=== PATIENT | female | born 1965 | race Two or more races ===

== ENCOUNTER 2020-07-26 11:01 | Inpatient (IN) | payer MEDICARE, OTHER ==
[~2020-07-26] VITALS: Ht 152.4 cm; Wt 105.0 kg
--- NOTE | 2020-07-26 11:27 | NUR ---
ED Nurse Note: Pt from home and referred by Dr Cabrera for evaluation. Per pt she was refered here for admission and needs covid tesing to be admitted on a health care placement. Pt denies any flu symptoms or any pain. AAOx4, ambulatory with no respiratory distress. No coughing or congestion.
--- NOTE | 2020-07-26 11:46 | NUR ---
ED Nurse Note: Dr Cabrera at the bed side.
[2020-07-26] MEDS ORDERED: Miralax 17gm pkt ORAL PRN (12:00)
--- NOTE | 2020-07-26 12:11 | History and Physical ---
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 Dickerson at [facility] per family report ( daughter Teagan ), the patient has NOT BEEN on any neurological medication due to her wishes and previously was living at home. Her ambulation is limited due to movement abnormalities, speech is preserved and reports being able to eat without problems at this time. Her Hygene is not adequately taken care off and she needs assistance with this activity of daily living. Family wants to look into ferry terminal agent care and possibly SNF for PT - OT and other ancillary support services. Allergies: Coded Allergies: No Known Allergies (Unverified , 07/26/20) COVID-19 Screening Contact w/high risk pt: No Recent Travel to affected area: No Experienced COVID-19 symptoms?: No Medication History No Active Prescriptions or Reported Meds Patient History Healthcare decision maker Resuscitation status Advanced Directive on File Review of Systems Constitutional: Reports: weakness Eye: Reports: no symptoms ENT: Reports: no symptoms Respiratory: Reports: no symptoms Cardiovascular: Reports: no symptoms Gastrointestinal: Reports: no symptoms Genitourinary: Reports: no symptoms Musculoskeletal: Reports: muscle stiffness Skin: Reports: no symptoms Psychiatric: Reports: no symptoms Neurological: Reports: tremors Endocrine: Reports: no symptoms Hematologic/Lymphatic: Reports: no symptoms All Other Systems: negative except mentioned in HPI Physical Exam General Appearance: WD/WN HEENT: normocephalic, atraumatic Neck: non-tender Respiratory/Chest: chest wall non-tender, lungs clear Cardiovascular/Chest: normal peripheral pulses, normal rate Abdomen: non tender, soft Extremities: normal range of motion Neurologic: porter sample case II-XII grossly normal Last 24 Hour Vital Signs Date Time Temp Pulse Resp B/P (MAP) Pulse Ox O2 Delivery O2 Flow Rate FiO2 07/26/20 11:27 86 18 Room Air 07/26/20 11:17 99.1 86 18 133/92 (106) 99 Room Air Laboratory Tests Test 07/26/20 11:45 White Blood Count Pending Red Blood Count Pending Hemoglobin Pending Hematocrit Pending Mean Corpuscular Volume Pending Mean Corpuscular Hemoglobin Pending Mean Corpuscular Hemoglobin Concent Pending Red Cell Distribution Width Pending Platelet Count Pending Mean Platelet Volume Pending Neutrophils (%) (Auto) Pending Lymphocytes (%) (Auto) Pending Monocytes (%) (Auto) Pending Eosinophils (%) (Auto) Pending Basophils (%) (Auto) Pending Sodium Level Pending Potassium Level Pending Chloride Level Pending Carbon Dioxide Level Pending Blood Urea Nitrogen Pending Creatinine Pending Estimat Glomerular Filtration Rate Pending Glucose Level Pending Calcium Level Pending Total Bilirubin Pending Aspartate Amino Transf (AST/SGOT) Pending Alanine Aminotransferase (ALT/SGPT) Pending Alkaline Phosphatase Pending Total Protein Pending Albumin Pending Globulin Pending Height (Feet): 5 Weight (Pounds): 100 Medications Current Medications Medications (Trade) Dose Ordered Sig/Mike Route PRN Reason Start Time Stop Time Status Last Admin Dose Admin Acetaminophen (Tylenol) 650 mg ONCE ONCE ORAL 07/26/20 12:00 07/26/20 12:01 Assessment/Plan Status: stable Assessment/Plan: 55 y/o F admitted to the hospital due to increasing weakness and inability to care for her ADL's due to underlying neurological condition # Pieter's disease diagnosed in 2014 and previously under the care of [facility] Dr. Dickerson Patient declined medication for her condition and she has 3 other siblings ( 1 ) affected by Pieter's disease. Her mother was also positive and is now . Supportive care will be continued PRN muscle relaxant if needed Labs ordered and pending. Check lipids and HbA1c Needs PT OT ST evaluation and CM referral for SNF placement due to need for ADL' s support. # DVT ppx low risk, ambulatory and declines SQ heparin or enoxaparin # GI ppx with Famotidine # FULL CODE Fiona Cabrera MD Jul 26, 2020 12:11
[2020-07-26 12:13] LABS: BASOPHILS % (AUTO) 0.9 % (0.0-2.0); EOSINOPHILS % (AUTO) 1.3 % (0.0-3.0); HEMATOCRIT 41.7 % (37.0-47.0); HEMOGLOBIN 12.8 G/DL (12.0-16.0); LYMPHOCYTES % (AUTO) 23.4 % (20.0-45.0); MEAN CORPUSCULAR VOLUME 77 FL (80-99); NEUTROPHILS % (AUTO) 67.4 % (45.0-75.0); PLATELET COUNT 323 K/UL (150-450); RED BLOOD COUNT 5.43 M/UL (4.20-5.40); WHITE BLOOD COUNT 6.7 K/UL (4.8-10.8)
--- NOTE | 2020-07-26 12:14 | Emergency Room Report ---
History of Present Illness General Chief Complaint: General Complaint Source: Patient Present Illness HPI Disclaimer: Please note that this report is being documented using DRAGON technology. This can lead to erroneous entry secondary to incorrect interpretation by the dictating instrument. HPI: 55-year-old female presents from home secondary to worsening of her baseline chorea. She has a history of Calloway's chorea. There was no report of fever nausea or vomiting. But family is having trouble taking care of her at home. She denies any pain nausea vomiting or fevers. PMH: Calloway's chorea Allergies: Coded Allergies: No Known Allergies (Unverified , 07/26/20) COVID-19 Screening Contact w/high risk pt: No Recent Travel to affected area: No Experienced COVID-19 symptoms?: No COVID-19 Testing performed SHOELACE TIPPING MACHINE OPERATOR: No Patient History Last Menstrual Period: na Reviewed Nursing Documentation: PMH: Agreed; PSxH: Agreed Nursing Documentation-PMH Past Medical History: No History, Except For Hx Neurological Problems: Yes - Calloway's disease Review of Systems All Other Systems: negative except mentioned in HPI Physical Exam Vital Signs Date Time Temp Pulse Resp B/P (MAP) Pulse Ox O2 Delivery O2 Flow Rate FiO2 07/26/20 11:17 99.1 86 18 133/92 (106) 99 Room Air Sp02 EP Interpretation: reviewed, normal General Appearance: well appearing, other - Patient with chorea type movements noted Head: normocephalic, atraumatic Eyes: bilateral eye PERRL, bilateral eye EOMI ENT: hearing grossly normal, moist mucus membranes Neck: full range of motion, supple Respiratory: lungs clear, normal breath sounds, no rhonchi, no respiratory distress, no retraction, no wheezing Cardiovascular #1: normal peripheral pulses, regular rate, rhythm, no murmur Gastrointestinal: non tender, soft, non-distended, no guarding Neurologic: alert, oriented x3, other - Chorea type movements noted Skin: normal color, warm/dry Medical Decision Making Diagnostic Impression: Primary Impression: Huntingtons chorea Additional Impression: UTI (urinary tract infection) ER Course MDM: Differential included but not limited to worsening Pieter's chorea. Generalized weakness, failure to thrive, UTI to name a few Clinical course-patient presented for worsening debilitation secondary to her Calloway's chorea. On my exam she did have chorea type movements. Per primary care physician patient is having difficulty completing her ADLs at home. And is difficult to care for. At this time will place in the hospital for observation, possibly physical therapy and Occupational Therapy. Admitted to the medical floor. IV antibiotics given for possible UTI. Labs - Laboratory Test Laboratory Tests Test 07/26/20 11:45 07/26/20 12:00 White Blood Count 6.7 K/UL (4.8-10.8) Red Blood Count 5.43 M/UL (4.20-5.40) H Hemoglobin 12.8 G/DL (12.0-16.0) Hematocrit 41.7 % (37.0-47.0) Mean Corpuscular Volume 77 FL (80-99) L Mean Corpuscular Hemoglobin 23.5 PG (27.0-31.0) L Mean Corpuscular Hemoglobin Concent 30.6 G/DL (32.0-36.0) L Red Cell Distribution Width 16.0 % (11.6-14.8) H Platelet Count 323 K/UL (150-450) Mean Platelet Volume 9.0 FL (6.5-10.1) Neutrophils (%) (Auto) 67.4 % (45.0-75.0) Lymphocytes (%) (Auto) 23.4 % (20.0-45.0) Monocytes (%) (Auto) 7.0 % (1.0-10.0) Eosinophils (%) (Auto) 1.3 % (0.0-3.0) Basophils (%) (Auto) 0.9 % (0.0-2.0) Sodium Level 142 MMOL/L (136-145) Potassium Level 4.3 MMOL/L (3.5-5.1) Chloride Level 107 MMOL/L (98-107) Carbon Dioxide Level 27 MMOL/L (21-32) Anion Gap 8 mmol/L (5-15) Blood Urea Nitrogen 12 mg/dL (7-18) Creatinine 0.6 MG/DL (0.55-1.30) Estimated Glomerular Filtration Rate > 60 mL/min (>60) Glucose Level 117 MG/DL (74-106) H Calcium Level 9.5 MG/DL (8.5-10.1) Total Bilirubin 0.3 MG/DL (0.2-1.0) Aspartate Amino Transferase (AST) 19 U/L (15-37) Alanine Aminotransferase (ALT) 16 U/L (12-78) Alkaline Phosphatase 67 U/L (46-116) Total Protein 8.5 G/DL (6.4-8.2) H Albumin 4.0 G/DL (3.4-5.0) Globulin 4.5 g/dL Albumin/Globulin Ratio 0.9 (1.0-2.7) L Urine Color Yellow Urine Appearance Cloudy Urine pH 6 (4.5-8.0) Urine Specific [place] 1.020 (1.005-1.035) Urine Protein Negative (NEGATIVE) Urine Glucose (UA) Negative (NEGATIVE) Urine Ketones 1+ (NEGATIVE) H Urine Blood 1+ (NEGATIVE) H Urine Nitrite Positive (NEGATIVE) H Urine Bilirubin Negative (NEGATIVE) Urine Urobilinogen Normal MG/DL (0.0-1.0) Urine Leukocyte Esterase 3+ (NEGATIVE) H Urine RBC 2-4 /HPF (0 - 2) H Urine WBC 20-30 /HPF (0 - 2) H Urine Squamous Epithelial Cells Many /LPF (NONE/OCC) H Urine Bacteria Many /HPF (NONE) H Microbiology Date/Time Source Procedure Growth Status 07/26/20 11:45 Nasopharynx SARS-CoV-2 RdRp Gene Assay - Final Complete Microbiology Date/Time Source Procedure Growth Status 07/26/20 11:45 Nasopharynx SARS-CoV-2 RdRp Gene Assay - Final Complete On reevaluation: Patient remained in no acute distress Plan-admission to Dr. Cabrera medical floor Last Vital Signs Date Time Temp Pulse Resp B/P (MAP) Pulse Ox O2 Delivery O2 Flow Rate FiO2 07/26/20 11:27 86 18 Room Air 07/26/20 11:17 99.1 133/92 (106) 99 Disposition: ADMITTED INPATIENT Condition: Serious Scripts No Active Prescriptions or Reported Meds Ken Ramirez M.D. Jul 26, 2020 12:14
[2020-07-26 12:26] LABS: APPEARANCE,URINE CLOUDY; BILIRUBIN, URINE NEGATIVE (NEGATIVE); GLUCOSE, URINE (UA) NEGATIVE (NEGATIVE); KETONES,URINE 1+ (NEGATIVE); LEUKOCYTE ESTERASE ,URINE 3+ (NEGATIVE); NITRITE,URINE POSITIVE (NEGATIVE); PH,URINE 6 (4.5-8.0); PROTEIN,URINE NEGATIVE (NEGATIVE); UROBILINOGEN,URINE NORMAL MG/DL (0.0-1.0)
[2020-07-26 12:27] LABS: COLOR,URINE YELLOW
[2020-07-26 12:27] LABS: ANION GAP 8 mmol/L (5-15); BLOOD UREA NITROGEN 12 mg/dL (7-18); CALCIUM 9.5 MG/DL (8.5-10.1); CARBON DIOXIDE 27 MMOL/L (21-32); CHLORIDE 107 MMOL/L (98-107); CREATININE 0.6 MG/DL (0.55-1.30); POTASSIUM 4.3 MMOL/L (3.5-5.1); SODIUM 142 MMOL/L (136-145)
[2020-07-26 12:30] LABS: ALANINE AMINOTRANSFERASE 16 U/L (12-78); ALBUMIN/GLOBULIN RATIO 0.9 (1.0-2.7); ALKALINE PHOSPHATASE 67 U/L (46-116); ASPARTATE AMINO TRANSFERASE 19 U/L (15-37); BILIRUBIN,TOTAL 0.3 MG/DL (0.2-1.0)
--- NOTE | 2020-07-26 13:09 | NUR ---
ED Nurse Note: Patient has $965 on her bag and she wants to keep it. Counting witnessed by Teodora STOUT.
[2020-07-26] MEDS ORDERED: cefTRIAXone 1 GM in NS 55 ML IVPB ONE (13:30)
--- NOTE | 2020-07-26 14:00 | NUR ---
ED Nurse Note: Report given to Margaret STOUT of med srug unit.
--- NOTE | 2020-07-26 14:31 | NUR ---
NURSE NOTES: Received patient from ER at 1430, report received from ARGELIA Gordon. Patient awake in bed, alert and oriented x 4, verbal and able to make needs known, skin warm and dry to touch, no SOB, bed alarm on, in lowest position with breaks engaged, IV line on left AC patent and intact, denies any pain or discomfort at this time, on room air, patient has no skin opening/bleeding or discolorations. Patient belongings checked and complete, pt has seymour in her purse (965 dollars) refused to be put in safe, explained risk and benefits. Pt oriented to room and staff and adjusting well, nursing needs attended, will continue to monitor and proceed with plan of care, call light within reach. Addendum: 07/26/20 at 1800 by Margaret Lewis RN Verified orders with Dr. Rick Jaimes.
[2020-07-26 16:00] VITALS: BP 103/56
--- NOTE | 2020-07-26 19:33 | NUR ---
NURSE HAND-OFF: Important Events on Shift:[safety and comfort, fall and safety precautions] Patient Status: [stable] Diet: [regular] Pending Orders: [] Pending Results/Labs:[] Pending MD notification:[] Latest Vital Signs: Temperature 99.0 , Pulse 77 , B/P 103 /56 , Respiratory Rate 18 , O2 SAT 98 , Room Air, O2 Flow Rate . Vital Sign Comment: [] Latest Savage Fall Score: 40 Fall Risk: Medium Risk Safety Measures: Call light , Bed Alarm , Side Rails Side Rails x2, Bed position Low and Locked. Fall Precautions: Report given to [ARGELIA Lacy].
--- NOTE | 2020-07-26 19:34 | NUR ---
NURSE NOTES: Received a pt awake,verbal and A&o x4. Pt has no sob,fever,cough and pain at the moment. Iv is intact and asymptomatic. Bed is in the lowest position,locked, and call light within reach. We will keep monitoring the pt
[2020-07-26 20:00] VITALS: BP 99/63
[2020-07-27] VITALS: BP 102/65
[2020-07-27 04:00] VITALS: BP 100/63
--- NOTE | 2020-07-27 07:24 | NUR ---
NURSE HAND-OFF: Important Events on Shift:na Patient Status: stable Diet: reg Pending Orders: Pending Results/Labs: Pending MD notification: Latest Vital Signs: Temperature 98.2 , Pulse 63 , B/P 100 /63 , Respiratory Rate 18 , O2 SAT 97 , Room Air, O2 Flow Rate . Vital Sign Comment: Latest Savage Fall Score: 40 Fall Risk: Medium Risk Safety Measures: Call light Within Reach, Bed Alarm , Side Rails Side Rails x2, Bed position Low and Locked. Fall Precautions: Patient Fall Education Report given to ARGELIA Lewis.
[2020-07-27 07:26] LABS: BASOPHILS % (AUTO) 1.3 % (0.0-2.0); EOSINOPHILS % (AUTO) 2.2 % (0.0-3.0); HEMATOCRIT 39.8 % (37.0-47.0); HEMOGLOBIN 12.2 G/DL (12.0-16.0); LYMPHOCYTES % (AUTO) 28.1 % (20.0-45.0); MEAN CORPUSCULAR VOLUME 76 FL (80-99); MONOCYTES % (AUTO) 10.2 % (1.0-10.0); NEUTROPHILS % (AUTO) 58.3 % (45.0-75.0); PLATELET COUNT 244 K/UL (150-450); RED BLOOD COUNT 5.22 M/UL (4.20-5.40); WHITE BLOOD COUNT 5.6 K/UL (4.8-10.8)
--- NOTE | 2020-07-27 07:35 | NUR ---
NURSE NOTES: Report received from ARGELIA Lacy. Patient awake in bed, alert and oriented x 4, no SOB, bed in lowest position with alarm on and breaks engaged, denies any discomfort at this time, on room air, IV line patent and intact on on the left AC, will continue to monitor and proceed with plan of care, call light within reach
[2020-07-27 08:00] VITALS: BP 130/77
[2020-07-27 08:13] LABS: ANION GAP 7 mmol/L (5-15); BLOOD UREA NITROGEN 12 mg/dL (7-18); CARBON DIOXIDE 27 MMOL/L (21-32); CHLORIDE 109 MMOL/L (98-107); CHOLESTEROL 175 MG/DL (< 200); CREATININE 0.6 MG/DL (0.55-1.30); HDL CHOLESTEROL 72 MG/DL (40-60); POTASSIUM 4.2 MMOL/L (3.5-5.1); SODIUM 143 MMOL/L (136-145); TRIGLYCERIDES 70 MG/DL (30-150)
[2020-07-27] MEDS: Enoxaparin 40mg Inj SUBQ SCH (08:22)
--- NOTE | 2020-07-27 08:23 | NUR ---
NURSE NOTES: Patient noted to have temperature of 100.4 F, offered Tylenol but patient refused, offered x 3 and explained risk and benefits, also refused morning meds, as per patient "I do not take any medications" Dr. Cabrera made aware. Cooling measures provided, offered fluids and kept room in moderate temperature. Will continue to monitor.
--- NOTE | 2020-07-27 09:56 | NUR ---
P.T Note: P.T evaluation completed and tx initiated. Please refer to P.T evaluation for current functional status. Pt is alert, O x 4, pleasant and cooperative. Pt denied pain during P.T evaluation. Pt presented generalized weakness and involuntary uncontrolled movements affecting her balance and coordination secondary to Hx of Alhambra's Chorea. Pt is independent in Bed mobilities , CGA X 1 and verbal cues for transfers and gait ambulation activities. Pt will benefit from skilled P.T to improve her strength, balance and coordination to increase mobility independence safety towards return to PLOF. Pt stated she preferred to go home but her daughter is unable to take care of her however pt also stated that her son is willing to take her. Further clarification from family needed as far as DC planning. Recommend SNF for short term rehab or home P.T follow up if adequate supervision is available at home. Thank you for this referral.
[2020-07-27 12:00] VITALS: BP 114/73
--- NOTE | 2020-07-27 13:05 | General Progress Note ---
Assessment/Plan Status: stable Assessment/Plan: 55 y/o F admitted to the hospital due to increasing weakness and inability to care for her ADL's due to underlying neurological condition # Pieter's disease diagnosed in 2014 and previously under the care of [facility] Dr. Dickerson Patient declined medication for her condition and she has 3 other siblings ( 1 ) affected by Randall's disease. Her mother was also positive and is now . Supportive care will be continued PRN muscle relaxant if needed Labs reviewed. Normal lipid panel. HbA1c pending Needs PT OT ST evaluation and CM referral for SNF placement due to need for ADL' s support. # Fever Symptomatic treatment Follow up studies and if no more fever in 24 hours then dc to SNF. PT note reviewed and appreciated. # DVT ppx low risk, ambulatory and declines SQ heparin or enoxaparin # GI ppx with Famotidine # Disposition SNF. Family requested CV [facility] [place]. CM updated. # FULL CODE Subjective Date patient seen: Jul 27, 2020 Time patient seen: 12:00 ROS Limited/Unobtainable: No Allergies: Coded Allergies: No Known Allergies (Unverified , 07/26/20) All Systems: reviewed and negative except above Subjective Non sterotypical movements present. staccatto spech Objective Last 24 Hour Vital Signs Date Time Temp Pulse Resp B/P (MAP) Pulse Ox O2 Delivery O2 Flow Rate FiO2 07/27/20 12:00 96.9 98 20 114/73 (87) 97 07/27/20 09:00 Room Air 07/27/20 08:00 100.4 69 20 130/77 (94) 97 07/27/20 04:00 98.2 63 18 100/63 (75) 97 07/27/20 00:00 97.8 63 18 102/65 (77) 97 07/26/20 21:00 Room Air 07/26/20 20:00 98.2 70 18 99/63 (75) 99 07/26/20 16:00 99.0 77 18 103/56 (72) 98 07/26/20 14:37 Room Air Intake and Output 07/26/20 07/27/20 19:00 07:00 Intake Total 120 ml Balance 120 ml Intake Oral 120 ml # Voids 1 2 Laboratory Tests 07/27/20 06:45: White Blood Count 5.6, Red Blood Count 5.22, Hemoglobin 12.2, Hematocrit 39.8, Mean Corpuscular Volume 76L, Mean Corpuscular Hemoglobin 23.3L, Mean Corpuscular Hemoglobin Concent 30.6L, Red Cell Distribution Width 16.0H, Platelet Count 244, Mean Platelet Volume 8.3, Neutrophils (%) (Auto) 58.3, Lymphocytes (%) (Auto) 28.1, Monocytes (%) (Auto) 10.2H, Eosinophils (%) (Auto) 2.2, Basophils (%) (Auto) 1.3, Sodium Level 143, Potassium Level 4.2, Chloride Level 109H, Carbon Dioxide Level 27, Anion Gap 7, Blood Urea Nitrogen 12, Creatinine 0.6, Estimat Glomerular Filtration Rate > 60, Glucose Level 99, Hemoglobin A1c 5.7, Calcium Level 9.0, Triglycerides Level 70, Cholesterol Level 175, LDL Cholesterol 87, HDL Cholesterol 72H, Cholesterol/HDL Ratio 2.4L Height (Feet): 5 Height (Inches): 0.00 Weight (Pounds): 100 General Appearance: WD/WN EENT: PERRL/EOMI Neck: non-tender Cardiovascular: normal rate Respiratory/Chest: lungs clear Abdomen: non tender Extremities: normal range of motion Neurologic: glost placer II-XII grossly normal, oriented x 3, other - non stereotypical movements in 4 extremities Fiona Cabrera MD Jul 27, 2020 13:05
[2020-07-27 16:00] VITALS: BP 111/75
--- NOTE | 2020-07-27 17:06 | NUR ---
CASE MANAGEMENT:INITIAL REVIEW 55 YR OLD FEMALE WALKED IN TO ED FROM HOME CC;GENERAL COMPLAINT SI;HUNTINGTONS CHOREA. UTI. 99.1 86 18 133/92 98% ON RA UA+ KETONES, BLOOD, NITRITE, LEUKOCYTE ESTERASEM RBC, WBC, SQUAMOUS EPITH CELLS, BACTERIA COVID RAPID ~ NEGATIVE IS;TYLENOL PO ONCE ADMITTED TO MED SURG MED SURG STATUS DCP;FROM HOME PLAN; SNF PLACEMENT
--- NOTE | 2020-07-27 19:30 | NUR ---
NURSE NOTES: patient is on bed,awake and verbally responsive. a&o x4. with iv line on the left ac, [place]. noted with involuntary jerky movements due to her diagnosis. per salud, " patient had a temp of > 100, tylenol was offered but the patient refused and dr. finch is aware. patient has $965 dollars, per salud pt wants to keep it. verified to patient, " i'm gonna keep my money". charge nurse is aware. reiterated to call and ask for assistance to prevent fall or injury. bed locked and in lowest position. call light and light button within easy reach. bed alarm on. will continue plan of care.
--- NOTE | 2020-07-27 19:33 | NUR ---
NURSE HAND-OFF: Important Events on Shift:[fall and safety precautions, temperature monitoring, for possible DC] Patient Status: [stable] Diet: [regular] Pending Orders: [] Pending Results/Labs:[] Pending MD notification:[] Latest Vital Signs: Temperature 96.4 , Pulse 64 , B/P 111 /75 , Respiratory Rate 19 , O2 SAT 98 , Room Air, O2 Flow Rate . Vital Sign Comment: [] Latest Savage Fall Score: 40 Fall Risk: Medium Risk Safety Measures: Call light Within Reach, Bed Alarm , Side Rails Side Rails x2, Bed position Low and Locked. Fall Precautions: Patient Fall Education Report given to [ARGELIA Alcantar].
[2020-07-27 20:00] VITALS: BP 134/71
[2020-07-28] VITALS: BP 100/67
[2020-07-28 05:00] VITALS: BP 107/73
--- NOTE | 2020-07-28 06:14 | NUR ---
NURSE HAND-OFF: Important Events on Shift: fall risk precautions ; needs assistance on ADL'S Patient Status: stable Diet regular Pending Orders: Pending Results/Labs: Pending MD notification: Latest Vital Signs: Temperature 96.8 , Pulse 66 , B/P 107 /73 , Respiratory Rate 20 , O2 SAT 99 , Room Air, O2 Flow Rate . Vital Sign Comment: Latest Savage Fall Score: 40 Fall Risk: Medium Risk Safety Measures: Call light Within Reach, Bed Alarm , Side Rails Side Rails x2, Bed position Low and Locked. Fall Precautions: Patient Fall Education
[2020-07-28 06:40] LABS: ANION GAP 7 mmol/L (5-15); BLOOD UREA NITROGEN 10 mg/dL (7-18); CALCIUM 8.8 MG/DL (8.5-10.1); CARBON DIOXIDE 28 MMOL/L (21-32); CHLORIDE 108 MMOL/L (98-107); CREATININE 0.6 MG/DL (0.55-1.30); SODIUM 143 MMOL/L (136-145)
[2020-07-28 06:42] LABS: BASOPHILS % (AUTO) 1.2 % (0.0-2.0); EOSINOPHILS % (AUTO) 3.7 % (0.0-3.0); HEMATOCRIT 37.1 % (37.0-47.0); HEMOGLOBIN 11.5 G/DL (12.0-16.0); LYMPHOCYTES % (AUTO) 36.5 % (20.0-45.0); MEAN CORPUSCULAR VOLUME 76 FL (80-99); NEUTROPHILS % (AUTO) 48.6 % (45.0-75.0); PLATELET COUNT 264 K/UL (150-450); RED BLOOD COUNT 4.89 M/UL (4.20-5.40); RED CELL DISTRIBUTION WIDTH 15.5 % (11.6-14.8); WHITE BLOOD COUNT 5.8 K/UL (4.8-10.8)
--- NOTE | 2020-07-28 07:15 | NUR ---
HAND-OFF: Report given to korina bustos.
--- NOTE | 2020-07-28 07:20 | NUR ---
NURSE NOTES: Received patient in bed, awake, patient denies any pain or discomfort. Patient is having breakfast. Bed is in lowest position and locked. Will continue to monitor.
[2020-07-28 08:00] VITALS: BP 133/78
[2020-07-28] MEDS: Enoxaparin 40mg Inj SUBQ SCH (08:06)
--- NOTE | 2020-07-28 09:00 | NUR ---
NURSE NOTES: Patient refused to take 9:00am scheduled medications. Patient was informed and re educated on lovenox and famotidine. Patient fully aware about meds but refused x3 stating " I never take medications and I do not need them. " Patient denies legs pain, edema or SOB.
[2020-07-28] MEDS ORDERED: ACETAMINOPHEN325 M1 ORAL (10:40)
[2020-07-28] MEDS ORDERED: RESTORIL15 MG ORAL (10:40)
--- NOTE | 2020-07-28 10:41 | Discharge Summary ---
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 Dickerson Patient declined medication for her condition and she has 3 other siblings ( 1 ) affected by Grandville's disease. Her mother was also positive and is now . Supportive care will be continued PRN muscle relaxant if needed Labs reviewed. Normal lipid panel. HbA1c pending Needs PT OT ST evaluation and CM referral for SNF placement due to need for ADL' s support. # Fever Symptomatic treatment Follow up studies and if no more fever in 24 hours then dc to SNF. PT note reviewed and appreciated. # DVT ppx low risk, ambulatory and declines SQ heparin or enoxaparin # GI ppx with Famotidine # Disposition SNF. Family requested [facility]. CM updated. # FULL CODE Discharge Discharge Vital Signs Last Vital Signs Date Time Temp Pulse Resp B/P (MAP) Pulse Ox O2 Delivery O2 Flow Rate FiO2 07/28/20 09:00 Room Air 07/28/20 08:00 98.8 76 18 133/78 (96) 98 Discharge Disposition Patient was discharged to SNF Discharge Diagnoses: (1) Huntingtons chorea Fiona Cabrera MD Jul 28, 2020 10:41
[2020-07-28 12:00] VITALS: BP 132/86
--- NOTE | 2020-07-28 13:03 | NUR ---
*-*DISCHARGE PLANNING*-* PATIENT HAS BEEN REFERRED TO: [facility] P: [phone]
--- NOTE | 2020-07-28 13:33 | NUR ---
*-*DISCHARGE PLANNED*-* PATIENT HAS BEEN ACCEPTED AND WILL BE DISCHARGE TO : [facility] P: [phone] FOR NURSE TO NURSE REPORT ROOM# 26. [facility] SET FOR 6:30PM S/W [id number] S/W PATIENT DAUGHTER HENRRY JAQUEZ, WHO IS IN AGREEMENT WITH DISCHARGE PLAN. S/W OPAL, @ [facility], WHO STATED PLEAS SEND PATIENT AFTER 6PM DUE TO BED AVAILABILITY
--- NOTE | 2020-07-28 14:47 | NUR ---
[employer] SPEECH, LANGUAGE, AND COGNITIVE COMMUNICATION EVALUATION: Orders received and acknowledged from Dr. Cabrera. Patient seen at bedside seated upright in chair. Per RN, Pt planning to be discharged later today. Patient is a 55 year old female with a PMHx of Pieter's Disease. Patient seen at bedside, is pleasant and agreeable to [employer] evaluation. Patient demonstrate appropriate knowledge and awareness of the nature of [facility] Disease, reports previously attending speech therapy at [facility] in order to re-learn how to communicate. INITIAL IMPRESSIONS: Mild to moderate dysarthria characterized by inconsistent articulation distortions of consonants and vowels, variable speech output flow/timing, and poor modulation of pitch. Dysphonia with vocal quality per perceptual analysis is harsh and slightly strained, with poor respiratory-phonation onset timing resulting in variable vocal intensity control. Patient additionally demonstrates mild cognitive deficits with memory (delayed, short term) and word retrieval. SPEECH/LANGUAGE: Patient is able to functionally communicate wants and needs with approx 85% intelligibility. Patient's intelligibility impacted by inconsistent articulation distortions of consonants and vowels, variable speech output flow/timing, and poor modulation of pitch. No delay in speech initiation or delay in response timing. Patient endorses experiencing instances of poor word retrieval, which was noted during the evaluation with instances of poor word selection. This appears to be a compensatory strategies for poor word retrieval (using circumlocution strategies to talk around 'forgotten' word) which Patient endorses. Patent was able to demonstrate appropriate responses and word selection. Auditory comprehension appears intact. VOICE: Per perceptual analysis, vocal quality is harsh and slightly strained, with poor respiratory-phonation onset timing resulting in variable vocal intensity control. COGNITIVE COMMUNICATION: Pt demonstrates appropriate sustained attention, assisted memory, and prospective memory, does endorse and demonstrate mild deficits with short term and delayed recall. Patient's safety awareness and ability to demonstrate understanding of unsafe situations appears intact. Patient's executive functioning and problem solving appears functional. Patient's inhibition appears appropriate during evaluation. Patient demonstrate appropriate knowledge and use of safety precautions given gait instability, albeit, Patient's ability to independently complete ADL's is guarded given Pieter's. Patient will require discharge to an assisted living facility and/or somewhere that is able to provide supervision to Patient during ADL's. REHAB POTENTIAL: Patient would be a very good candidate for [employer] tx targeting compensatory strategies for Patient's cognitive function (memory) and to improve speech intelligibility (given [facility]). Patient would benefit from discharge home with 24 hour caregiver or to a [facility]/S[facility] for ongoing speech/language therapy and for assistance with basic self-care tasks. [employer] plans to f/u with Patient while in house for speech/language therapy. Thank you for this referral! [employer] [phone]
[2020-07-28 16:00] VITALS: BP 107/67
--- NOTE | 2020-07-28 18:30 | NUR ---
NURSE NOTES: Received call [facility], ambulance will be late for one hour. RN gave inter facility report to Fiorella and patient's daughter was informed about d/c by CM. RN counted money with patient $965.00 is with the patient. Will endorse to next shift.
--- NOTE | 2020-07-28 19:19 | NUR ---
NURSE HAND-OFF: Important Events on Shift: discharge planning Patient Status: stable Diet: regular Pending Orders: Pending Results/Labs: Pending MD notification: Latest Vital Signs: Temperature 98.6 , Pulse 68 , B/P 107 /67 , Respiratory Rate 16 , O2 SAT 96 , Room Air, O2 Flow Rate . Vital Sign Comment: Latest Savage Fall Score: 40 Fall Risk: Medium Risk Safety Measures: Call light Within Reach, Bed Alarm , Side Rails Side Rails x2, Bed position Low and Locked. Fall Precautions: Patient Fall Education Report given to Katharine and endorsed to discharge patient.
--- NOTE | 2020-07-28 19:19 | NUR ---
NURSE NOTES: Received report from korina bustos. patient is sitting on the chair with her clothes on. per juli"patient is for discharge today at [facility]; waiting for ambulance to come, the ETA is 7:30pm. juli gave report to kanika STOUT and counted her money $965. discharge papers signed by the patient. all belongings prepared for discharge. iv line on the left ac,saline lock. denies any pain or discomfort at the moment. reiterated to call and ask for assistance to prevent injury or fall.call light and light button with easy reach. will continue plan of care.
--- NOTE | 2020-07-28 19:30 | NUR ---
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 per [facility], they're gonna be 15 mins late. patient is aware and charge nurse.
[2020-07-28 20:00] VITALS: BP 115/75
--- NOTE | 2020-07-28 20:00 | NUR ---
NURSE NOTES: patient was picked by [facility]. denies any pain or discomfort. all belongings & $965 was released upon discharge. all discharge papers was given to the EMT's.endorsed to the EMT regarding the $965 and reiterated to endorse to the RN of rishabh wilkins for safety. discontinued iv line and id band. discharge in stable condition and not in any form of respiratory distress. charge nurse made aware.
== END 2020-07-28 20:05 | DRG 57 ==
LOC: EMR 12:58 → 4E 13:01 → EDBEDREQ 13:13
DX: G10 Huntington's disease (principal); N39.0 Urinary tract infection, site not specified; R50.9 Fever, unspecified
CPT/HCPCS: 36415; 80048; 80053; 80061; 81003; 83036; 85025; 87086; 96365; 99285; U0002